=== PATIENT | female | born 1950 | race Caucasian/White ===

== ENCOUNTER 2023-05-01 08:40 | Outpatient (RCR) | payer OTHER, SELFPAY | END 2023-05-01 23:59 | disposition home or self-care (01) | LOC: CRHB 08:40 | PROVIDERS: ATTENDING PHYSICIAN Internal Medicine Cardiovascular Disease | DX: I25.10 Atherosclerotic heart disease of native coronary artery without angina pectoris (principal); Z95.1 Presence of aortocoronary bypass graft; I25.2 Old myocardial infarction | CPT/HCPCS: G0422; G0423 ==